=== PATIENT | female | born 1995 | race Caucasian/White ===

== ENCOUNTER 2024-07-18 00:49 | Outpatient (CLI) | payer BC, SELFPAY ==
[2024-07-18 15:08] LABS: Kit/Specimen SENT
[2024-07-18 15:14] LABS: Abs Immature Grans 0.06 10^3/uL (0.0-0.06); Absolute Eosinophil Count 0.03 10^3/uL (0.0-0.7); Absolute Lymphocyte Count 1.45 10^3/uL (1.2-3.4); Absolute Monocyte Count 0.47 10^3/uL (0.1-0.8); Absolute Neutrophil Count 9.39 10^3/uL (1.2-6.7); Basophils % 0.3 %; Eosinophils % 0.3 %; HCT 37.2 % (36.0-46.0); HGB 12.7 g/dL (11.2-15.7); Immature Grans % 0.5 %; Lymphocytes % 12.7 %; MCH 31.1 pg (27.0-33.0); MCHC 34.1 % (32.0-36.0); MCV 91 fL (80-95); MPV 9.7 fL (8.0-11.0); Monocytes % 4.1 %; Neutrophils % 82.1 %; Platelet Count 205 10^3/uL (130-400); RBC 4.09 10^6/uL (3.93-5.22); RDW 12.3 % (11.7-14.6); WBC 11.44 10^3/uL (4.4-10.8)
[2024-07-18 15:15] LABS: Absolute Basophil Count 0.03 10^3/uL (0.0-0.2)
[2024-07-21 08:30] LABS: HIV-1/2 Ag & Ab Screen Negative (Negative)
[2024-07-21 08:46] LABS: Hepatitis C Ab w Rflx HCV PCR Negative (Negative)
[2024-07-21 09:26] LABS: Hepatitis B Surface Ag Negative (Negative)
[2024-07-21 10:03] LABS: Rubella IgG Ab (UVM) Positive (See Note); Varicella IgG Antibody Negative (See Note)
[2024-07-21 17:03] LABS: Syphilis IgG w/Reflex Nonreactive (Nonreactive)
== END 2024-07-18 00:50 | disposition home or self-care (01) ==
LOC: LBO 00:49
PROVIDERS: Visit Provider Advanced Practice Midwife
DX: Z34.91 Encounter for supervision of normal pregnancy, unspecified, first trimester (principal)
CPT/HCPCS: 36415; 86787; 86803; 86850; 86900; 86901; 87340; 87389; 85025; 86762; 86780

== ENCOUNTER 2024-07-18 14:11 | Outpatient (REF) | payer BC, SELFPAY ==
[2024-07-21 12:09] LABS: Chlamydia Result Negative (Negative); GC Result Negative (Negative)
== END 2024-07-18 14:12 | disposition home or self-care (01) ==
LOC: LBN 14:11
PROVIDERS: Visit Provider Advanced Practice Midwife
DX: Z34.91 Encounter for supervision of normal pregnancy, unspecified, first trimester (principal)
CPT/HCPCS: 87491; 87591; 87086

== ENCOUNTER 2024-11-07 00:37 | Outpatient (CLI) | payer BC, SELFPAY ==
[2024-11-07 12:40] LABS: HCT 34.8 % (36.0-46.0); HGB 12.1 g/dL (11.2-15.7); MCH 31.5 pg (27.0-33.0); MCHC 34.8 % (32.0-36.0); MCV 91 fL (80-95); MPV 9.5 fL (8.0-11.0); Platelet Count 173 10^3/uL (130-400); RBC 3.84 10^6/uL (3.93-5.22); RDW 12.2 % (11.7-14.6); RDW-SD 40.4 fL; WBC 10.00 10^3/uL (4.4-10.8)
[2024-11-07 13:00] LABS: Glucose,1 Hr (Glucola) 98 mg/dL (80-140)
== END 2024-11-07 00:38 | disposition home or self-care (01) ==
LOC: LBO 00:37
PROVIDERS: Visit Provider Advanced Practice Midwife
DX: Z34.92 Encounter for supervision of normal pregnancy, unspecified, second trimester (principal)
CPT/HCPCS: 36415; 82950; 85027

== ENCOUNTER 2024-12-30 16:50 | Outpatient (CLI) | payer BC, SELFPAY ==
[2024-12-30 16:53] VITALS: BP 122/76; PULSE 92; TEMP 36.7
--- NOTE | 2024-12-30 18:08 | W.OBNST ---
Date of service: 12/30/24 Time of Service: 18:08 NST Evaluation Reason for NST Reasons for Nonstress Test: OTHER, SEE COMMENT Reason for NST Other: unable to determine baseline in office Gestational Age Gestational Age in Weeks and Days: 35 Weeks and 5Days Test and Monitor Explained Test/Monitor Explained: Test Explained, Monitor Explained and Patient Verbalized Understanding Vital Signs Blood Pressure: 122/76 Pulse: 92 Temperature: 98.1 F NST Information Date on Monitor: 12/30/24 Time on Monitor: 16:45 Date off Monitor: 12/30/24 Time off Monitor: 17:20 Total Time on Monitor: 35 NST Interventions: PO Hydration Contraction Frequency: 0 NST Evaluation Patient States Movement: Present FHR Baseline: 140 Variability: Moderate 6-25 bpm Accelerations: 15x15 Decelerations: None NST Results: Reactive Note Ultrasound Done: N/A. NST Note NST Reviewed and Verified by: Alyse Mahajan
[2024-12-30 18:09] VITALS: BP 122/76; PULSE 92; TEMP 36.7
== END 2024-12-30 17:24 ==
LOC: BCD 16:51 → OBS 16:52
PROVIDERS: Visit Provider Advanced Practice Midwife
DX: Z3A.35 35 weeks gestation of pregnancy (principal); O36.8331 Maternal care for abnormalities of the fetal heart rate or rhythm, third trimester, fetus 1
CPT/HCPCS: 59025; 87081

== ENCOUNTER 2024-12-30 17:33 | Outpatient (REF) | payer BC, SELFPAY | END 2024-12-30 17:34 | disposition home or self-care (01) | LOC: LBN 17:33 | PROVIDERS: Visit Provider Advanced Practice Midwife | DX: Z34.93 Encounter for supervision of normal pregnancy, unspecified, third trimester (principal) | CPT/HCPCS: 87081 ==

== ENCOUNTER 2025-01-30 09:58 | Inpatient (IN) | payer BC, SELFPAY ==
[2025-01-30] VITALS (64 sets, daily range): BP systolic 90–137; BP diastolic 56–75; PULSE 78–111; RESP 16–20; TEMP 36.8–37.2; O2SAT 88–100; BMI 30.5
[2025-01-30 10:23] LABS: Abs Immature Grans 0.07 10^3/uL (0.0-0.06); HCT 35.5 % (36.0-46.0); HGB 12.0 g/dL (11.2-15.7); Immature Grans % 0.6 %; MCH 29.9 pg (27.0-33.0); MCHC 33.8 % (32.0-36.0); MCV 88 fL (80-95); MPV 10.4 fL (8.0-11.0); Platelet Count 205 10^3/uL (130-400); RBC 4.02 10^6/uL (3.93-5.22); RDW 12.2 % (11.7-14.6); RDW-SD 39.6 fL; WBC 11.84 10^3/uL (4.4-10.8)
--- NOTE | 2025-01-30 10:28 | PDOC.NST_ITS ---
Date of service: 01/30/25 Time of Service: 10:28 NST Evaluation Reason for NST Reasons for Nonstress Test: OTHER, SEE COMMENT Reason for NST Other: rule out labor Gestational Age Gestational Age in Weeks and Days: 40 Weeks and 1Days Test and Monitor Explained Test/Monitor Explained: Test Explained and Patient Verbalized Understanding Vital Signs Blood Pressure: 125/75 Pulse: 90 Temperature: 98.2 F Weight: 207 lb Urine Results Urine Protein: Negative Urine Ketones: Negative Urine Glucose: Negative Urine Blood: Negative NST Information Date on Monitor: 01/30/25 Time on Monitor: 09:08 Date off Monitor: 01/30/25 Time off Monitor: 09:37 Total Time on Monitor: 29 NST Interventions: PO Hydration NST Evaluation Patient States Movement: Present FHR Baseline: 145 Variability: Moderate 6-25 bpm Accelerations: 15x15 Decelerations: None NST Results: Reactive Note Ultrasound Done: N/A. NST Note Note: Ángel reports regular contractions every 3-5 minutes at home. Reactive NST and uterine irritability and irregular contractions noted. Cervix 2 cms/95%0 s tation. Admitted in early labor. NST Reviewed and Verified by: Emmy Huitron
--- NOTE | 2025-01-30 10:30 | HPE_ITS ---
Date of service: 01/30/25 Time of Service: 10:30 Assessment and Plan Assessment and plan (1) Spontaneous onset of labor: Status: Acute Assessment and plan: Admitted to Center. Comfort measures and ambulation recommended. Will reassess for labor progress in 2-3 hours. Anticipate . OB-HPI Labor/Delivery History of Present Illness Reason for Visit: NST Chief Complaint: Uterine Contractions. MANDA Calculator Estimated Delivery Date Method Current WG Current Estimate 01/29/25 LMP (Certain) 40w 1d Other Estimates 02/01/25 Ultrasound #1 39w 5d Comments: Ángel called at 0700 and reported regular contractions every 3-5 minutes at home. She presented at 0900 and had NST and rule out labor exam. History of Present Expected Delivery Route/Plan - CNM FOB - Myron Hernandez (first baby) BG-Lauren Varicella non-immune, offer vaccine Planning for waterbirth, nitrous, relaxed vibe, prefers not to be offered e pidural but open to one (finds positive motivation most helpful). team: FOB and 2 sisters GBS negative Specific Issues/Plan 1. Pap due , no hx abnormal paps 2. CfDNA low risk female, Will check insurance coverage for cystic fibrosis and SMA, declines AFP 3. Family hx: Stargardt syndrome, genetic eye disorder. Declines genetic counseling. 4. 5-Ps neg 5. Chronic low back pain after a fall. PT visits at [facility] - SI joint dysfunction 6. GERD with yawning and heartburn- omeprazole prescribe prior to . Assessment: History Reviewed & Current Informed Consent Informed Consent: Risk,Benefits,Alternatives Discussed (Staying at the Center for durther observation or returning home to await active labor. ) PFSH All Active Problems (Updated 01/30/25 @ 10:34 by Emmy Huitron CNM) Spontaneous onset of labor (Acute) Low back pain (Acute) After a fall in 2020. PT in the past. Susceptible to varicella (non-immune), currently (Acute) (Acute) Medical History (Updated 01/30/25 @ 10:34 by Emmy Huitron CNM) Asthma Family History (Updated 07/18/24 @ 13:42 by Emmy Huitron CNM) Father Hypertension Maternal Grandmother Breast cancer Paternal Aunt Cancer uterine cancer Maternal Uncle Congenital eye anomalies Stargardt syndrome Maternal Cousin Congenital eye anomalies Stargardt syndrome. autosomal recessive. Her son also has it. Social History (Updated 05/23/24 @ 12:14 by Barb Kamara CNM) Smoking/Tobacco Use Status: Never Second Hand Exposure: No Smoking risk assessment performed?: Yes Alcohol Intake: current Drug use: Never Substance use type: does not use Household members: spouse current occupation: teacher Pets and animals: Yes (2 dogs, 1 cat and farm animals) Pets and animals: cat(s) Sexually active: Yes Do you think of yourself as: straight/heterosexual Current gender identity: female What is your relationship status?: Panel score (0-1 are the most socially isolated patients): 1 What type of physical activity do you participate in: regular exercise, weight lifting, running and yoga Duration: 45-60 minutes/day Frequency: 3-4 times per week Special miles needs: No Agree to transfusion: Yes Seatbelt use: always Helmet use: Yes Do you feel safe at home: Yes Female Reproductive History Menstrual Age of Menarche: 16 Duration of menses: 3-5 days control method: none History History 1 Para 0 Hx # Term Pregnancies 0 Multiple births 0 Hx # Pregnancies 0 Ectopic pregnancies 0 AB induced 0 Hx Number of Living Children 0 AB spontaneous 0 Meds Allergies and Home Medications Allergies Allergy/AdvReac Type Severity Reaction Status Date / Time No Known Allergies Allergy Verified 01/27/25 15:23 Home Medications Medication Instructions Recorded Confirmed Type vits no.126-ferrous fum tab PO DAILY 05/23/24 01/27/25 History 28 mg iron-folic acid 800 mcg tablet (Classic ) vitamin D3 125 mcg (5,000 1 cap PO DAILY 08/15/2407/18 History unit)-vitamin K2 90 mcg capsule breast pump #1 ea 11/19/24 01/27/25 Rx Exam Physical Exam Vital signs: Temp Pulse Resp BP 98.2 F 90 18 125/75 01/30/25 09:10 01/30/25 09:10 01/30/25 09:10 01/30/25 09:10 Vital Signs Reviewed: Yes Constitutional Constitutional: no acute distress Detailed Labor and Delivery Exam Dilation: 2 Effacement (%): 95 station: 0 Cervix position: mid Consistency: soft Virgen Score: Cervical Points Exam 0 1 2 3 Dilation Closed 1-2cm 3-4 cm 5-6cm Effacement 0-30% 40-50% 60-70% 80% Consistency Firm Medium Soft Station -3 -2 -1,0 +1,+2 Position Posterior Mid Anterior Amniotic Membrane Status: Intact Monitor Mode: External Contraction Frequency(min): evry 3-6 Contraction Duration(sec): 40-60 Contraction Intensity: Moderate Fetus A Heart Rate Baseline: 140 Monitor Accelerations: 15 X 15 Monitor Decelerations: None Variability: Moderate (6-25 BPM) Presentation: Cephalic Categories: Category I Est. Weight: 8 lb HEENT Exam HEENT Exam: Normal Neck Exam Neck Exam: Normal Respiratory Exam Respiratory Exam: Normal Cardiovascular Exam Cardiovascular Exam: Normal Abdominal Exam Abdominal Exam: Normal Exam Exam: Normal Extremities Exam Extremities Exam: Normal Skin Exam Skin Exam: Normal Psychiatric Exam Psychiatric Exam: Normal Results Abnormal Lab Findings: Abnormal Labs 01/30/25 10:07 WBC 11.84 H Hct 35.5 L Absolute Neutrophils 10.40 H Absolute Lymphocytes 0.92 L Risk Assessment Risk for Shoulder Dystocia Historical/Initial OB: NEGATIVE FOR: Pelvic Abnormality, Pre- BMI>30, Previous Shoulder Dystocia or Previous Macrosomia 36 Weeks: NEGATIVE FOR: Current Gestational DM, EFW>4500gms or Maternal Weight Gain>40lbs 40 Weeks: POSTIVE FOR: Maternal Weight Gain >40lb; NEGATIVE FOR: EFW> 4500 gms or Post Dates Increased Risk?: Yes Delivery Plan @ 40 wks: planned Risk for Pre-Eclampsia Yes, if one or more: NEGATIVE FOR: Hx Pre-E/Gest HTN, Chronic HTN, Multiple Gestation, Pre-gestational DM, Renal Disease, Systemic Lupus or APA Syndrome Yes, if 2 or more: POSITIVE FOR: Nulliparity; NEGATIVE FOR: Age>= 35 yrs, >10yr btwn pregnancies, BMI>30, ethinicty, Mother/Sister w/ Pre-E or Previous IUGR Risk for Post- Hemorrhage Initial: NEGATIVE FOR: Multiple Gestation, Previous PPH, Known Clotting Deficiency, Grand Multiparity or Anticoagulation 36 Weeks: NEGATIVE FOR: Anemia, hgb<10, Low platelets(thrombocytopenia), Gestational HTN or Pre-E, Polyhydraminios or EFW>4500gms 40 Weeks: NEGATIVE FOR: Anemia, hgb<10, Low platelets (thrombocytopenia), Gestation HTN or Pre-E, Polyhydraminios or EFW>4500gms At Risk?: No Risks Reviewed Risks Reviewed Upon Admission: Yes
--- NOTE | 2025-01-30 12:44 | W.PM.OBNL1 ---
Date of service: 01/30/25 Time of Service: 12:44 Informed Consent Informed Consent: Risk,Benefits,Alternatives Discussed (Staying at the Center for durther observation or returning home to await active labor. ) Pelvic Exam Dilation: 4 Effacement (%): 95 station: 0 Cervix Position: posterior Consistency: soft Vaginal Exam Presentation: Cephalic Contractions Monitor Mode: None Contraction Frequency(min): every 3 min Contraction Duration(sec): 60 Intensity: Moderate/Strong Fetus A Monitor: Doppler Heart Rate Baseline: 140 Presentation: Cephalic Variability: Moderate (6-25 BPM) Categories: Category I FHR Rhythm: Regular Accelerations: 15 X 15 Decelerations: None Amniotic Membrane Status: Intact Assessment and Plan Assessment and plan (1) Spontaneous onset of labor: Status: Acute Assessment and plan: comfort measures and anticipate Objective Abnormal lab results 01/30/25 Range/Units 10:07 WBC 11.84 H (4.4-10.8) 10^3/uL Hct 35.5 L (36.0-46.0) % Absolute Neutrophils 10.40 H (1.2-6.7) 10^3/uL Absolute Lymphocytes 0.92 L (1.2-3.4) 10^3/uL Temp Pulse Resp BP 98.2 F 90 18 125/75 01/30/25 09:10 01/30/25 09:10 01/30/25 09:10 01/30/25 09:10 Laboratory Results WBC 11.84 10^3/uL (4.4-10.8) H 01/30/25 10:07 RBC 4.02 10^6/uL (3.93-5.22) 01/30/25 10:07 Hgb 12.0 g/dL (11.2-15.7) 01/30/25 10:07 Hct 35.5 % (36.0-46.0) L 01/30/25 10:07 MCV 88 fL (80-95) 01/30/25 10:07 MCH 29.9 pg (27.0-33.0) 01/30/25 10:07 MCHC 33.8 % (32.0-36.0) 01/30/25 10:07 RDW 12.2 % (11.7-14.6) 01/30/25 10:07 Plt Count 205 10^3/uL (130-400) 01/30/25 10:07 MPV 10.4 fL (8.0-11.0) 01/30/25 10:07 Immature Gran % 0.6 % 01/30/25 10:07 Neutrophils % 87.8 % 01/30/25 10:07 Lymphocytes % 7.8 % 01/30/25 10:07 Monocytes % 3.5 % 01/30/25 10:07 Eosinophils % 0.0 % 01/30/25 10:07 Basophils % 0.3 % 01/30/25 10:07 Nucleated RBC % 0.0 % (0.0-0.3) 01/30/25 10:07 Absolute Neutrophils 10.40 10^3/uL (1.2-6.7) H 01/30/25 10:07 Absolute Lymphocytes 0.92 10^3/uL (1.2-3.4) L 01/30/25 10:07 Absolute Monocytes 0.41 10^3/uL (0.1-0.8) 01/30/25 10:07 Absolute Eosinophils 0.00 10^3/uL (0.0-0.7) 01/30/25 10:07 Absolute Basophils 0.04 10^3/uL (0.0-0.2) 01/30/25 10:07 ABO/Rh O Positive 01/30/25 10:07 Antibody Screen NEGATIVE 01/30/25 10:07 Subjective Patient Reports: New Complaints Interval history since last seen: Stronger contractions reported. Ángel is coping well with them and receiving excellent labor support from her . Results Hemoglobin/Hematocrit: Hgb 12.0 g/dL (11.2-15.7) 01/30/25 10:07 Hct 35.5 % (36.0-46.0) L 01/30/25 10:07 Abnormal Lab Findings: Abnormal Labs 01/30/25 10:07 WBC 11.84 H Hct 35.5 L Absolute Neutrophils 10.40 H Absolute Lymphocytes 0.92 L
--- NOTE | 2025-01-30 14:41 | W.PM.OBNL1 ---
Date of service: 01/30/25 Time of Service: 14:41 Informed Consent Informed Consent: Risk,Benefits,Alternatives Discussed (Staying at the Center for durther observation or returning home to await active labor. ) Pelvic Exam Dilation: 5 Effacement (%): 95 station: 0 Cervix Position: posterior Consistency: soft Vaginal Exam Presentation: Cephalic Comments: mucusy discharge noted which is blood tingerd Contractions Monitor Mode: None Contraction Frequency(min): every 2-3 Contraction Duration(sec): 60 Intensity: Moderate/Strong Fetus A Monitor: Doppler Heart Rate Baseline: 140 Presentation: Cephalic Variability: Moderate (6-25 BPM) Categories: Category I FHR Rhythm: Regular Accelerations: 15 X 15 Decelerations: None Amniotic Membrane Status: Intact Assessment and Plan Assessment and plan (1) Spontaneous onset of labor: Status: Acute Assessment and plan: Will continue to assess labor progress. Comfort measures. Anticipate . Objective Abnormal lab results 01/30/25 Range/Units 10:07 WBC 11.84 H (4.4-10.8) 10^3/uL Hct 35.5 L (36.0-46.0) % Absolute Neutrophils 10.40 H (1.2-6.7) 10^3/uL Absolute Lymphocytes 0.92 L (1.2-3.4) 10^3/uL Temp Pulse Resp BP 98.2 F 78 18 137/61 01/30/25 13:11 01/30/25 13:11 01/30/25 09:10 01/30/25 13:11 Laboratory Results WBC 11.84 10^3/uL (4.4-10.8) H 01/30/25 10:07 RBC 4.02 10^6/uL (3.93-5.22) 01/30/25 10:07 Hgb 12.0 g/dL (11.2-15.7) 01/30/25 10:07 Hct 35.5 % (36.0-46.0) L 01/30/25 10:07 MCV 88 fL (80-95) 01/30/25 10:07 MCH 29.9 pg (27.0-33.0) 01/30/25 10:07 MCHC 33.8 % (32.0-36.0) 01/30/25 10:07 RDW 12.2 % (11.7-14.6) 01/30/25 10:07 Plt Count 205 10^3/uL (130-400) 01/30/25 10:07 MPV 10.4 fL (8.0-11.0) 01/30/25 10:07 Immature Gran % 0.6 % 01/30/25 10:07 Neutrophils % 87.8 % 01/30/25 10:07 Lymphocytes % 7.8 % 01/30/25 10:07 Monocytes % 3.5 % 01/30/25 10:07 Eosinophils % 0.0 % 01/30/25 10:07 Basophils % 0.3 % 01/30/25 10:07 Nucleated RBC % 0.0 % (0.0-0.3) 01/30/25 10:07 Absolute Neutrophils 10.40 10^3/uL (1.2-6.7) H 01/30/25 10:07 Absolute Lymphocytes 0.92 10^3/uL (1.2-3.4) L 01/30/25 10:07 Absolute Monocytes 0.41 10^3/uL (0.1-0.8) 01/30/25 10:07 Absolute Eosinophils 0.00 10^3/uL (0.0-0.7) 01/30/25 10:07 Absolute Basophils 0.04 10^3/uL (0.0-0.2) 01/30/25 10:07 ABO/Rh O Positive 01/30/25 10:07 Antibody Screen NEGATIVE 01/30/25 10:07 Subjective Patient Reports: New Complaints Interval history since last seen: Contractions are stronger and Ángel is using nitrous oxide with good effect. Her sisters are also here for support. Ángel is coping very well. Results Hemoglobin/Hematocrit: Hgb 12.0 g/dL (11.2-15.7) 01/30/25 10:07 Hct 35.5 % (36.0-46.0) L 01/30/25 10:07 Abnormal Lab Findings: Abnormal Labs 01/30/25 10:07 WBC 11.84 H Hct 35.5 L Absolute Neutrophils 10.40 H Absolute Lymphocytes 0.92 L
--- NOTE | 2025-01-30 16:04 | W.PM.OBNL1 ---
Date of service: 01/30/25 Time of Service: 16:04 Informed Consent Informed Consent: Risk,Benefits,Alternatives Discussed (Staying at the Center for durther observation or returning home to await active labor. ) Pelvic Exam Comments: cervical exam deferred until after epidural Contractions Contraction Frequency(min): every 3-4 Contraction Duration(sec): 60 Intensity: Strong Fetus A Monitor: External (US) Heart Rate Baseline: 145 Variability: Moderate (6-25 BPM) Categories: Category I Accelerations: 15 X 15 Decelerations: None Amniotic Membrane Status: Intact Assessment and Plan Assessment and plan (1) Spontaneous onset of labor: Status: Acute Assessment and plan: Rest was encouraged. Anticipate . Care will be assumed by Gena Mahajan CNM at 1700. Objective Abnormal lab results 01/30/25 Range/Units 10:07 WBC 11.84 H (4.4-10.8) 10^3/uL Hct 35.5 L (36.0-46.0) % Absolute Neutrophils 10.40 H (1.2-6.7) 10^3/uL Absolute Lymphocytes 0.92 L (1.2-3.4) 10^3/uL Temp Pulse Resp BP Pulse Ox 98.2 F 95 H 18 118/58 L 98 01/30/25 13:11 01/30/25 16:03 01/30/25 09:10 01/30/25 16:02 01/30/25 16:03 Laboratory Results WBC 11.84 10^3/uL (4.4-10.8) H 01/30/25 10:07 RBC 4.02 10^6/uL (3.93-5.22) 01/30/25 10:07 Hgb 12.0 g/dL (11.2-15.7) 01/30/25 10:07 Hct 35.5 % (36.0-46.0) L 01/30/25 10:07 MCV 88 fL (80-95) 01/30/25 10:07 MCH 29.9 pg (27.0-33.0) 01/30/25 10:07 MCHC 33.8 % (32.0-36.0) 01/30/25 10:07 RDW 12.2 % (11.7-14.6) 01/30/25 10:07 Plt Count 205 10^3/uL (130-400) 01/30/25 10:07 MPV 10.4 fL (8.0-11.0) 01/30/25 10:07 Immature Gran % 0.6 % 01/30/25 10:07 Neutrophils % 87.8 % 01/30/25 10:07 Lymphocytes % 7.8 % 01/30/25 10:07 Monocytes % 3.5 % 01/30/25 10:07 Eosinophils % 0.0 % 01/30/25 10:07 Basophils % 0.3 % 01/30/25 10:07 Nucleated RBC % 0.0 % (0.0-0.3) 01/30/25 10:07 Absolute Neutrophils 10.40 10^3/uL (1.2-6.7) H 01/30/25 10:07 Absolute Lymphocytes 0.92 10^3/uL (1.2-3.4) L 01/30/25 10:07 Absolute Monocytes 0.41 10^3/uL (0.1-0.8) 01/30/25 10:07 Absolute Eosinophils 0.00 10^3/uL (0.0-0.7) 01/30/25 10:07 Absolute Basophils 0.04 10^3/uL (0.0-0.2) 01/30/25 10:07 ABO/Rh O Positive 01/30/25 10:07 Antibody Screen NEGATIVE 01/30/25 10:07 Vital Signs Reviewed: Yes Subjective Patient Reports: New Complaints Interval history since last seen: Ángel's contractions were very uncomfortable. Dera Pleitez CRNA came in to speak with Ángel about an epidural. Ángel decided that she was ready for an epidural as she was very tired. Using nitrous oxide with fair effect and she requested to use the tub before epidural which was helpful. Results Hemoglobin/Hematocrit: Hgb 12.0 g/dL (11.2-15.7) 01/30/25 10:07 Hct 35.5 % (36.0-46.0) L 01/30/25 10:07 Abnormal Lab Findings: Abnormal Labs 01/30/25 10:07 WBC 11.84 H Hct 35.5 L Absolute Neutrophils 10.40 H Absolute Lymphocytes 0.92 L
[2025-01-30] MEDS: FentaNYL/ROPIvacaine 2 mcg/ml and 0.1% 200 ML CADD Cassette EP (16:10)
[2025-01-30] MEDS: Lactated Ringers 1,000 ML 125 ML IV ×2 (16:19→18:46)
--- NOTE | 2025-01-30 16:21 | ANES.PREOP_ITS ---
General Info Date of Service Date Performed: 01/30/25 Height: 5 ft 9 in Weight: 93.894 kg Body Mass Index (BMI): 30.5 Meds Allergies and Home Medications Allergies Allergy/AdvReac Type Severity Reaction Status Date / Time No Known Allergies Allergy Verified 01/27/25 15:23 Home Medication Medication Instructions Recorded vits no.126-ferrous fum tab PO DAILY 05/23/24 28 mg iron-folic acid 800 mcg tablet (Classic ) vitamin D3 125 mcg (5,000 1 cap PO DAILY 08/15/24 unit)-vitamin K2 90 mcg capsule breast pump #1 ea 11/19/24 Current Visit Medications: Current Medications Generic Name Dose Route Start Last Admin Trade Name Freq PRN Reason Stop Dose Admin Fentanyl/Ropivacaine 200 ml 01/30/25 16:00 Fentanyl/Ropivacaine 2 Mcg/Ml And 0.1% 200 Ml Cadd Cassette EP DIRECTED RISA Ringer's Solution 500 mls @ 1,000 mls/hr 01/30/25 16:14 IV 01/30/25 16:43 BOLUS ONE Ringer's Solution 1,000 mls @ 125 mls/hr 01/30/25 16:30 IV INFUSION RISA IV Miscellaneous Supplies 1 each 01/30/25 10:00 Iv Access IV DIRECTED RISA Sodium Chloride 0 ml 01/30/25 09:58 Normal Saline Flush 10 Ml Syr IVP PRN PRN Sodium Chloride 0 ml 01/30/25 20:00 Normal Saline Flush 10 Ml Syr IVP BID RISA Sodium Chloride 0 ml 01/30/25 09:58 Normal Saline 10 Ml Vial IJ DIRECTED PRN PFSH Active Problems Active Problems: Problem Status Onset Code Spontaneous onset of labor Acute Low back pain Acute M54.50 Susceptible to varicella (non-immune), currently Acute O09.899, Z28.39 Acute Z34.90 Medical History Medical History (Updated 01/30/25 @ 10:34 by Emmy Huitron CNM) Asthma Tobacco Smoking/Tobacco Use Status: Never Passive smoking exposure: No Second hand exposure: No Alcohol Alcohol Intake: current Substance Use Substance use: Never Substance use type: does not use Prental History History 2 1 Para 0 Hx # Term Pregnancies 0 Multiple births 0 Hx # Pregnancies 0 Ectopic pregnancies 0 AB induced 0 Hx Number of Living Children 0 AB spontaneous 0 Vital Signs and Lab Results Vital Signs Most Recent Vital Signs in EMR: Most Recent Vital Signs Temp Pulse Resp BP Pulse Ox 36.8 C 90 18 115/66 96 01/30/25 13:11 01/30/25 16:18 01/30/25 09:10 01/30/25 16:17 01/30/25 16:18 Lab Results 01/30/25 10:07 Blood Type / Crossmatch: 2 Antibody Screen NEGATIVE Today Complete Blood Count: 2 WBC, (4.4-10.8) 11.84 10^3/uL H Today, 10:07 RBC, (3.93-5.22) 4.02 10^6/uL Today, 10:07 Hgb, (11.2-15.7) 12.0 g/dL Today, 10:07 Hct, (36.0-46.0) 35.5 % L Today, 10:07 Plt Count, (130-400) 205 10^3/uL Today, 10:07 Anesthesia Assessment and Plan Anesthesia History Personal History: No History of Anesthesia Complications Family History: No Family History of Anesthesia Complications Exercise Tolerance Exercise Tolerance: Metabolic Equivalents>4 Pertinent Negatives Pertinent Negatives: No Major Cardiovascular Symptoms or Complaints and No Major Pulmonary Symptoms or Complaints Cardiac & Pulmonary Exam Cardiac Exam: Normal S1/S2 Heart Sounds Pulmonary Exam: Clear Bilateral Breath Sounds Implantable Cardiac Device Does patient have a Pacemaker or an ICD?: No Airway Exam Known Difficult Airway: No Mallampati Class: 2 Mouth Opening: Normal (> 3cm) Thyromental Distance: Greater than 3 cm Facial Hair: Full Pierson Neck Range of Motion: Full ROM Neck Circumference: Normal Teeth Condition: Normal Dentition ASA Classification ASA Score: ASA 2 Emergency Case?: No NPO Status NPO Status: NPO Clears >2 hours, Solids >8 hours Status Status: Confirmed Anesthesia Plan Resuscitation Status: Full Code Anesthesia Technique: Epidural Anesthesia Airway Planned: Natural Airway Monitors Used: Standard Monitors
--- NOTE | 2025-01-30 16:24 | W.ANESNEU ---
Epidural/Spinal Catheter Date Performed: 01/30/25 Procedure Start: 15:37 Procedure Stop: 16:15 Requesting Provider: Emmy Huitron Procedure Location: Obstetrics Reason Performed: Labor Epidural Standard Monitors Applied: Blood Pressure, SpO2 and See EMR for corresponding vital signs Patient Position: Sitting Sedation Given (Indicate Dose Given): No Sedation given Patient Mental Status: Awake Sterility: Hand Hygiene, Surgical Cap, Surgical Mask and Sterile Gloves Procedure Location: L3-L4 Interspace Epidural Needle: Tuohy 18 Gauge Needle Length: 4 Inch Needle Approach: Midline Epidural Procedure: Skin Prepped, Sterile Drape Placed, 1% Lidocaine to skin and subcutaneous tissue with 25G needle, Tuohy Needle placed, LINH to Saline Used, Epidural Catheter Placed, Negative Heme, Negative CSF Flow and Tuohy Needle Removed Catheter Placed?: Catheter Placed Test Dose (Indicate Dose Given): 3ml 1.5% Lidocaine with 1:200K Epinephrine Given and Negative Test Dose Loss of Resistance Depth (cm): 7 Catheter depth at skin (cm): 13 Dressing: Sorbaview Dressing Placed, Mastisol Used and Dressing reinforced with Tape Epidural Provider Bolus (Indicate Dose Given): Total bolus dose given in 3-5 ml divided doses and Total Ropivacaine 0.1% with Fentanyl 2mcg/ml Given from pump. (ml) Dose:: 8ml Additives (Indicate Dose Given ): None Infusion Medication: Medication Infusion Began Medication Infusion: Ropivacaine 0.1% with Fentanyl 2mcg/ml Maintenance Infusion Rate (ml/hour): 12 PCEA Bolus Dose (ml): 5 Block Level: T10 Paresthesia: None Ultrasound: Not Used Number of Attempts (See previous attempts in note section): 1 Procedure Tolerated: No Complications Procedure Outcome: Successful Procedure Comment:: Patient educated on PCEA button, family supoort provided to patient. Performed By: Drea Pleitez
--- NOTE | 2025-01-30 18:37 | W.PM.OBNL1 ---
Date of service: 01/30/25 Time of Service: 18:37 Pelvic Exam Dilation: 7 Effacement (%): 100 station: 0 Contractions Monitor Mode: External Contraction Frequency(min): q2-3 Intensity: Moderate/Strong Fetus A Monitor: External (US) Heart Rate Baseline: 135 Variability: Moderate (6-25 BPM) Categories: Category I Accelerations: Present Decelerations: Early Amniotic Membrane Status: Ruptured Assessment and Plan Assessment and plan (1) Spontaneous onset of labor: Status: Acute Assessment and plan: A: Effective epidural anesthesia, progressed to 7/100%, vtx @ 0 station Category 1 tracing, afebrile, normotensive P: positioning to facilitate rotation and descent recheck in 2 hrs, consider pitocin augmentation if indicated Dr. Chao updated on pt status Objective Vital Signs Reviewed: Yes Subjective Interval history since last seen: Pt states she is very pleased with her epidural, in good spirits and visiting with her partner and 2 friends.
--- NOTE | 2025-01-30 21:09 | W.PM.OBNL1 ---
Date of service: 01/30/25 Time of Service: 21:09 Informed Consent Informed Consent: Augmentation of Labor and Risk,Benefits,Alternatives Discussed Pelvic Exam Dilation: 8 Effacement (%): 100 station: +1 Contractions Monitor Mode: External Contraction Frequency(min): q3-4 Intensity: Moderate/Strong Fetus A Monitor: External (US) Heart Rate Baseline: 140 Variability: Moderate (6-25 BPM) Categories: Category I Accelerations: Present Decelerations: Early Recurrence: Intermittent Amniotic Membrane Status: Ruptured Assessment and Plan Assessment and plan (1) Spontaneous onset of labor: Status: Acute (2) Slow progress in first stage of labor: Status: Acute Assessment and plan: A: 2.5 hrs since last exam, progressed to 7-8 cm and slight descent to +1 Cntrx have slowed to q3-4 min, pt consents to pitocin augmentation after r&b discussion Category 1 tracing with occasional earlies, pt changing positions, epidural working well P: Begin low dose pitocin augmentation, monitor for progress Objective Vital Signs Reviewed: Yes Subjective Interval history since last seen: Has been able to nap for a short period, epidural remains effective, consents to pitocin augmentation
[2025-01-30] MEDS: Oxytocin/Normal Saline 30 UNIT/500 ML BAG 2 UNITS IV (21:30)
--- NOTE | 2025-01-30 23:11 | W.PM.OBNL1 ---
Date of service: 01/30/25 Time of Service: 23:00 Informed Consent Informed Consent: Augmentation of Labor and Risk,Benefits,Alternatives Discussed Pelvic Exam Dilation: 10 station: +3 Position: SAHIL Contractions Monitor Mode: External Contraction Frequency(min): q2-4 Intensity: Strong Fetus A Monitor: External (US) Heart Rate Baseline: 160 Variability: Minimal (1-5 BPM) Categories: Category II Accelerations: Present Decelerations: Early and Variable Recurrence: Recurrent Amniotic Membrane Status: Ruptured Assessment and Plan Assessment and plan (1) Slow progress in first stage of labor: Status: Acute Assessment and plan: A: Pitocin @ 4u/min, contraction pattern strengthened resulting in full dilation with descent 2nd stage huddle held, normal risk for SD and PPH Cat 2 tracing and vtx descending with maternal effort P: Coached pushingDr. Chao inhouse Anticipate Objective Vital Signs Reviewed: Yes Objective Narrative Objective Narrative: full dilation and vtx @ +3 Category 2 tracing: periodic variables, rising baseline to 160 Subjective Interval history since last seen: increased rectal pressure and urges to bear down reported by pt
[2025-01-31] VITALS (39 sets, daily range): BP systolic 106–123; BP diastolic 55–73; PULSE 88–129; RESP 17–18; TEMP 36.6–36.9; O2SAT 90–99
[2025-01-31] MEDS: Benzocaine 20% 60 ML CAN (00:40)
--- NOTE | 2025-01-31 01:05 | W.OBDELIVERY ---
Date of service: 01/31/25 Time of Service: 01:00 OB Labor/ Delivery Information Baby A Delivery Delivery Method: Spontaneaous Presentation: Cephalic Cephalic Position: Vertex Vertex Position: Left Occipital Anterior Breech Position: N/A Cord Description-Baby A: 3 Vessels and Other (left nuchal hand) Amniotic Fluid: Clear Quantitative Blood Loss: 700 ml Delivery Outcome: Liveborn Infant Transferred: Other (infant in warmer in mother's room for CPAP) Note: Pitocin augmentation begun after 2100 with category 1 tracing, at 4mu/min contractions strengthened and pt progressed to full dilation and descent to +3 with involuntary maternal bearing down by 2300. At 2nd stage huddle it was noted tracing was category 2, baseline tachycardic @ 160-170, periods of minimal variability, early and variable decels were periodic and there was occasional question of late decel intermittently. 2nd stage huddle identified normal risk for PPH and SD, Dr. Chao inhouse and preparations for delivery in place. Excellent maternal efforts brought the baby to just after second 2nd stage huddle completed, FHT 135 immediately prior to of a female over intact perineum, nuchal hand reduced and shoulders delivered with ease. appeared pink and flexed but not crying, drying and stimulation did not improve 's respiratory efforts, cord clamped @ 1 minute, cut by FOB, infant to warmer for further support and evaluation and Dr. Gregory pagekassi. Cord gas samples and cord blood collected by CNM, pitocin bolus begun, [place] placenta intact with 3VC, bladder emptied for approximately 300 ml urine by straight cath. Perineum inspected and found to be intact, bilateral superficial labial lacerations noted, not bleeding and well approximated, right labial lac edges stabilized with 2 stitches of 3.0 Vicryl using 20% benzocaine topical aerosol anesthetic. Apgars assigned 4, 6, 7 by nursing, Dr. Gregory supervising infant care in warmer, weight 3675 gms. Providers Nurse Music Historian: Alyse Mahajan Financial Systems Manager: Drea Pleitez Environmental Director: Nataliia Gregory Nurse: Nellie Garcia Nurse: Francy Naylor Labor/Delivery Information Group Beta Strep: Negative Rubella Status: Immune Blood Type: O+ Varicella Immunity: Nonimmune Stages of Labor Onset of Labor Date: 01/30/25 Onset of Labor Time: 02:30 Complete Dilatation Date: 01/30/25 Complete Dilatation Time: 23:00 Labor - Stage 1 Duration: 20 hours and 30 minutes ROM Baby A: 01/30/25 ROM Baby A: 14:23 Infant Delivery Date-Baby A: 01/31/25 Delivery Time-Baby A: 00:21 Labor Stage 2 Duration: 1 hours and 21 minutes Placenta Delivery Date-Baby A: 01/31/25 Placenta Delivery Time-Baby A: 00:30 Labor-Stage 3 Duration: 9 minutes Total Length of Labor-Baby A: 21 hours and 51 minutes Placenta Cultured: No Placenta Status: Delivered Baby A Infant Gender: Female Gestational Status: Term (39-41.6 wks) Gestational Age in Weeks/Days: 40 Weeks and 2 Days weight: 8 lb 1.632 oz Weight Comment: 3675 gms Score-1 Minute Interval(Baby A) Heart Rate-1 minute: 100 BPM or Greater Respiratory Effort- 1 minute: No Spontaneous Effort Muscle Tone-1 minute: Minimal Flexion/Extension Reflex Response-1 minute: Minimal Response Color-1 minute: Pallor or Cyanosis Score-5 Minute Interval(Baby A) Heart Rate- 5 minute: 100 BPM or Greater Respiratory Effort-5 minute: Slow Respiration/Weak Cry Muscle Tone-5 minute: Minimal Flexion/Extension Reflex Response-5 minute: Minimal Response Color-5 minute: Bluish Hands or Feet
[2025-01-31] MEDS: Acetaminophen 325 MG TAB 650 MG PO ×2 (01:24→18:06)
[2025-01-31] MEDS: Ibuprofen 600 MG TAB PO ×3 (01:24→19:50)
[2025-01-31] MEDS: Hamamelis Leaf/Glycerin 100 EACH BOX PR (01:24)
[2025-01-31] MEDS: Dibucaine 1% 28 GM TUBE TP (01:24)
--- NOTE | 2025-01-31 16:00 | W.ANESPOSTOP ---
Postoperative Evaluation Date, Time and Location Date Performed: 01/31/25 Time Performed: 15:30 Patient Location: Obstetrics Vital Signs Most Recent Imported Vital Signs: Most Recent Vital Signs Temp Pulse Resp BP Pulse Ox 36.6 C 101 H 17 123/64 97 01/31/25 15:44 01/31/25 15:44 01/31/25 04:30 01/31/25 15:44 01/31/25 15:44 Pain Score Most Recent Pain Score: Most Recent Pain Score Pain Level 3 01/31/25 13:08 Assessment Mental Status: Awake (Alert & Oriented to Patient Baseline) Airway and Respiratory Function: Patent airway with normal (patient baseline) respiratory exam Cardiovascular Function: Hemodynamically Stable Hydration Status: Adequately Hydrated Nausea & Vomiting: No Nausea or Vomiting Pain: Pain is tolerable per patient Peripheral Nerve Block: Patient did not receive a nerve block Postoperative Comments:: Patient was please with analgesic coverage from the labor epidural. Reported slightly more sensation on right than left, but would not describe it as painful. and patient resting with child.
[2025-01-31] MEDS: Docusate Sodium 100 MG CAP PO (18:06)
[2025-02-01 08:30] VITALS: BP 109/79; PULSE 82; TEMP 36.7
[2025-02-01 08:35] VITALS: TEMP 36.7
[2025-02-01] MEDS: Acetaminophen 325 MG TAB 650 MG PO (08:35)
--- NOTE | 2025-02-01 08:54 | W.PM.OBPNV1 ---
Date of service: 02/01/25 Time of Service: 08:54 Assessment and Plan Assessment and plan (1) Term delivered: Status: Acute Assessment and plan: A: PPD#1, nml recovery, satisfied with experience off to a good start, pt states good supports are in place at home P: Offer varicella vaccine prior to discharge Pt desires discharge today (24 hr pp) Written instructions reviewed and given to pt F/up at 2 & 6 wks PP with md do resident urgent care Subjective Subjective Patient comments: No complaints, Pain well controlled, Tolerating diet and Flatus present Patient's Mood: happy [place] baby status: Doing well, Nursing well, Rooming in and Strong Bonding Observed feeding status: Exclusively breast feeding Exam Physical Exam Vital signs: Temp Pulse Resp BP Pulse Ox 98.1 F 99 H 17 118/73 99 02/01/25 08:35 01/31/25 20:09 01/31/25 20:09 01/31/25 20:09 01/31/25 20:09 Vital Signs Reviewed: Yes Constitutional Constitutional: no acute distress, average body habitus and cooperative HEENT Exam HEENT Exam: Normal Neck Exam Neck Exam: Normal Breast Exam Bilateral: Breast Exam: Normal and Soft Nipple Exam: Normal and Uninjured Respiratory Exam Respiratory Exam: Normal Cardiovascular Exam Cardiovascular Exam: Normal Abdominal Exam Abdomen: Other (soft and nontender) Fundal Exam Fundus: Below Umbilicus and Firm Rectal Exam Rectal Exam: Normal Exam Perineum: Intact and Normal Extremities Exam Extremity Exam: Normal, Full ROM and Warm to Touch Back/Spine/Pelvis Exam Back Exam: Normal Skin Exam Skin Exam: Normal Neurological Exam Neurological Exam: Normal Psychiatric Exam Psychiatric Exam: Normal Results Hemoglobin/Hematocrit: Hgb 12.0 g/dL (11.2-15.7) 01/30/25 10:07 Hct 35.5 % (36.0-46.0) L 01/30/25 10:07 Abnormal Lab Findings: Abnormal Labs 01/30/25 10:07 WBC 11.84 H Hct 35.5 L Absolute Neutrophils 10.40 H Absolute Lymphocytes 0.92 L
--- NOTE | 2025-02-01 09:16 | DSE_ITS ---
Date of service: 02/01/25 Time of Service: 09:16 DS: Diagnosis Discharge Diagnosis (1) Term delivered: Status: Acute Discharge Plan Disposition Patient Disposition: Home Condition: Good Discharge Details Reason For Visit: Labor Admit Date/Time: 01/30/25 09:58 Admit Provider: Emmy Huitron Attending Provider: Emmy Huitron Primary Care Provider: Unknown,Unknown Hospital Course Hospital Course: Admitted for labor, under epidural anesthesia on HD2, nml recovery and desires discharge at 24 hr . Home Meds and New Rx's Prescriptions: No Action Classic 28 mg iron- 800 mcg tablet PO DAILY (DME) breast pump Device See Rx Instructions .ROUTE .MEDSUPPLY Qty: 1 0RF Rx Instructions: As directed vitamin D3-vitamin K2 125-90 mcg capsule 1 cap PO DAILY Discharge Instructions Instructions: Sex After Having a Baby, Normal Bleeding After Having a Baby Additional Instructions: Please keep 2 and 6 wk appointments with day camp unit leader, call for any and all concerns. Stand Alone Forms: BC Instructions, BC Post Vaginal Deliver, Portal Information Activity:: Activity as Tolerated Equipment/Supplies:: No Equipment Needed Diet:: As Tolerated DS: Summary Time Spent with Patient providing and/or coordinating discharge services: Greater than 30 minutes Status at Discharge Functional status at discharge: independent ambulation Overall status at discharge: patient is progressing back to baseline Mental Status: mental status grossly normal Speech and Movement: speech and movement normal and speech clear Mood: congruent mood Affect: normal affect Exam Psych Mental Status: mental status grossly normal Speech and Movement: speech and movement normal and speech clear Mood: congruent mood Affect: normal affect DS: Data Vitals/I&O Vitals and I&O: Vital Signs Temperature 98.1 F 02/01/25 08:35 Temperature 98.2 F 01/30/25 10:30 Temperature Source Oral 02/01/25 08:30 Pulse 82 02/01/25 08:30 Pulse 90 01/30/25 10:30 Pulse Rhythm Regular 01/31/25 19:35 Respiratory Rate 17 01/31/25 20:09 Respiratory Depth Normal 01/31/25 19:35 Blood Pressure 109/79 02/01/25 08:30 Blood Pressure 125/75 01/30/25 10:30 Blood Pressure Mean 89 02/01/25 08:30 Pulse Oximetry 99 01/31/25 20:09 Oxygen Delivery Method Room Air 01/30/25 10:10 Oxygen Flow Rate 0 01/30/25 10:10 Pain Level 3 02/01/25 08:35 Intake & Output 01/31/25 01/31/25 02/01/25 11:59 23:59 11:59 Output Total 3800 / 3800 Balance -3800 / -3800 Output: Urine 3100 / 3100 Blood 700 / 700 Other: Urine Color Pale Pale [place] Urine Appearance Clear Urine Odor None Data Completed and Pending Pending Labs at Discharge: 01/30/25 10:07 WBC 11.84 H RBC 4.02 Hgb 12.0 Hct 35.5 L MCV 88 MCH 29.9 MCHC 33.8 RDW 12.2 Plt Count 205 MPV 10.4 Immature Gran % 0.6 Neutrophils % 87.8 Lymphocytes % 7.8 Monocytes % 3.5 Eosinophils % 0.0 Basophils % 0.3 Nucleated RBC % 0.0 Absolute Neutrophils 10.40 H Absolute Lymphocytes 0.92 L Absolute Monocytes 0.41 Absolute Eosinophils 0.00 Absolute Basophils 0.04 ABO/Rh O Positive Antibody Screen NEGATIVE PFSH All Active Problems (Updated 02/01/25 @ 09:01 by Alyse Mahajan) Term delivered (Acute) Low back pain (Acute) After a fall in 2020. PT in the past. Susceptible to varicella (non-immune), currently (Acute) Medical History (Updated 02/01/25 @ 09:01 by Alyse Mahajan) Spontaneous onset of labor Slow progress in first stage of labor Asthma Family History (Updated 07/18/24 @ 13:42 by Emmy Huitron CNM) Father Hypertension Maternal Grandmother Breast cancer Paternal Aunt Cancer uterine cancer Maternal Uncle Congenital eye anomalies Stargardt syndrome Maternal Cousin Congenital eye anomalies Stargardt syndrome. autosomal recessive. Her son also has it. Social History (Updated 05/23/24 @ 12:14 by Barb Kamara CNM) Smoking/Tobacco Use Status: Never Second Hand Exposure: No Smoking risk assessment performed?: Yes Alcohol Intake: current Drug use: Never Substance use type: does not use Household members: spouse Housing: house current occupation: teacher Pets and animals: Yes (2 dogs, 1 cat and farm animals) Pets and animals: cat(s) Sexually active: Yes Do you think of yourself as: straight/heterosexual Current gender identity: female What is your relationship status?: Panel score (0-1 are the most socially isolated patients): 1 What type of physical activity do you participate in: regular exercise, weight lifting, running and yoga Duration: 45-60 minutes/day Frequency: 3-4 times per week Special miles needs: No Agree to transfusion: Yes Seatbelt use: always Helmet use: Yes Do you feel safe at home: Yes Female Reproductive History Menstrual Age of Menarche: 16 Duration of menses: 3-5 days control method: none History History 1 Para 0 Hx # Term Pregnancies 0 Multiple births 0 Hx # Pregnancies 0 Ectopic pregnancies 0 AB induced 0 Hx Number of Living Children 0 AB spontaneous 0
--- NOTE | 2025-02-01 09:18 | W.PM.OBDISCH ---
Date of service: 02/01/25 Time of Service: 09:18 DS: Diagnosis Discharge Diagnosis (1) Term delivered: Status: Acute Discharge Plan Disposition Patient Disposition: Home Condition: Good Discharge Details Reason For Visit: Labor Admit Date/Time: 01/30/25 09:58 Admit Provider: Emmy Huitron Attending Provider: Emmy Huitron Primary Care Provider: Unknown,Unknown Hospital Course Hospital Course: Admitted for labor, under epidural anesthesia on HD2, nml recovery and desires discharge at 24 hr . Home Meds and New Rx's Prescriptions: No Action Classic 28 mg iron- 800 mcg tablet PO DAILY (DME) breast pump Device See Rx Instructions .ROUTE .MEDSUPPLY Qty: 1 0RF Rx Instructions: As directed vitamin D3-vitamin K2 125-90 mcg capsule 1 cap PO DAILY Discharge Instructions Instructions: Sex After Having a Baby, Normal Bleeding After Having a Baby Additional Instructions: Please keep 2 and 6 wk appointments with chairman emeritus, call for any and all concerns. Stand Alone Forms: BC Instructions, BC Post Vaginal Deliver, Portal Information Activity:: Activity as Tolerated Equipment/Supplies:: No Equipment Needed Diet:: As Tolerated OB:DS Summary Summary Vaginal Delivery Method: Spontaneaous Episiotomy Description: None Laceration Description: None Laceration Extension: N/A Contraception Discussed Contraception Discussed: Yes Contraceptive Plan: Not planning to use (fertility tracking), [place] Gender-Baby A: Female weight: 8 lb 1.632 oz Status at Discharge Functional status at discharge: independent ambulation Overall status at discharge: patient is progressing back to baseline Mental Status: mental status grossly normal Speech and Movement: speech and movement normal and speech clear Mood: congruent mood Affect: normal affect Exam Physical Exam Vital signs: Temp Pulse Resp BP Pulse Ox 98.1 F 82 17 109/79 99 02/01/25 08:35 02/01/25 08:30 01/31/25 20:09 02/01/25 08:30 01/31/25 20:09 Constitutional Constitutional: no acute distress, average body habitus and cooperative HEENT Exam HEENT Exam: Normal Neck Exam Neck Exam: Normal Breast Exam Bilateral: Breast Exam: Normal and Soft Respiratory Exam Respiratory Exam: Normal Cardiovascular Exam Cardiovascular Exam: Normal Abdominal Exam Abdomen: Other (soft and nontender) Fundal Exam Fundus: Below Umbilicus and Firm Rectal Exam Rectal Exam: Normal Exam Perineum: Intact and Normal Extremities Exam Extremity Exam: Normal, Full ROM and Warm to Touch Back/Spine/Pelvis Exam Back Exam: Normal Skin Exam Skin Exam: Normal Neurological Exam Neurological Exam: Normal Psychiatric Exam Psychiatric Exam: Normal PFSH All Active Problems (Updated 02/01/25 @ 09:01 by Alyse Mahajan) Term delivered (Acute) Low back pain (Acute) After a fall in 2020. PT in the past. Susceptible to varicella (non-immune), currently (Acute) Medical History (Updated 02/01/25 @ 09:01 by Alyse Mahajan) Spontaneous onset of labor Slow progress in first stage of labor Asthma Family History (Updated 07/18/24 @ 13:42 by Emmy Huitron CNM) Father Hypertension Maternal Grandmother Breast cancer Paternal Aunt Cancer uterine cancer Maternal Uncle Congenital eye anomalies Stargardt syndrome Maternal Cousin Congenital eye anomalies Stargardt syndrome. autosomal recessive. Her son also has it. Social History (Updated 05/23/24 @ 12:14 by Barb Kamara CNM) Smoking/Tobacco Use Status: Never Second Hand Exposure: No Smoking risk assessment performed?: Yes Alcohol Intake: current Drug use: Never Substance use type: does not use Household members: spouse Housing: house current occupation: teacher Pets and animals: Yes (2 dogs, 1 cat and farm animals) Pets and animals: cat(s) Sexually active: Yes Do you think of yourself as: straight/heterosexual Current gender identity: female What is your relationship status?: Panel score (0-1 are the most socially isolated patients): 1 What type of physical activity do you participate in: regular exercise, weight lifting, running and yoga Duration: 45-60 minutes/day Frequency: 3-4 times per week Special miles needs: No Agree to transfusion: Yes Seatbelt use: always Helmet use: Yes Do you feel safe at home: Yes Female Reproductive History Menstrual Age of Menarche: 16 Duration of menses: 3-5 days control method: none History History 1 Para 0 Hx # Term Pregnancies 0 Multiple births 0 Hx # Pregnancies 0 Ectopic pregnancies 0 AB induced 0 Hx Number of Living Children 0 AB spontaneous 0 DS: Data Vitals/I&O Vitals and I&O: Vital Signs Temperature 98.1 F 02/01/25 08:35 Temperature 98.2 F 01/30/25 10:30 Temperature Source Oral 02/01/25 08:30 Pulse 82 02/01/25 08:30 Pulse 90 01/30/25 10:30 Pulse Rhythm Regular 01/31/25 19:35 Respiratory Rate 17 01/31/25 20:09 Respiratory Depth Normal 01/31/25 19:35 Blood Pressure 109/79 02/01/25 08:30 Blood Pressure 125/75 01/30/25 10:30 Blood Pressure Mean 89 02/01/25 08:30 Pulse Oximetry 99 01/31/25 20:09 Oxygen Delivery Method Room Air 01/30/25 10:10 Oxygen Flow Rate 0 01/30/25 10:10 Pain Level 3 02/01/25 08:35 Intake & Output 01/31/25 01/31/25 02/01/25 11:59 23:59 11:59 Output Total 3800 / 3800 Balance -3800 / -3800 Output: Urine 3100 / 3100 Blood 700 / 700 Other: Urine Color Pale Pale [place] Urine Appearance Clear Urine Odor None Data Completed and Pending Pending Labs at Discharge: 01/30/25 10:07 WBC 11.84 H RBC 4.02 Hgb 12.0 Hct 35.5 L MCV 88 MCH 29.9 MCHC 33.8 RDW 12.2 Plt Count 205 MPV 10.4 Immature Gran % 0.6 Neutrophils % 87.8 Lymphocytes % 7.8 Monocytes % 3.5 Eosinophils % 0.0 Basophils % 0.3 Nucleated RBC % 0.0 Absolute Neutrophils 10.40 H Absolute Lymphocytes 0.92 L Absolute Monocytes 0.41 Absolute Eosinophils 0.00 Absolute Basophils 0.04 ABO/Rh O Positive Antibody Screen NEGATIVE
[2025-02-01] MEDS: Varicella Virus Vaccine (Live) 0.5 ML SC (12:02)
== END 2025-02-01 12:05 | disposition home or self-care (01) | DRG 807 ==
LOC: BCD 13:47 → OBS 13:47
PROVIDERS: Admitting Provider Advanced Practice Midwife; Visit Provider Advanced Practice Midwife
DX: O48.0 Post-term pregnancy (principal); Z37.0 Single live birth; Z3A.40 40 weeks gestation of pregnancy; K21.9 Gastro-esophageal reflux disease without esophagitis; Z28.39 Other underimmunization status; G89.29 Other chronic pain; M54.50 Low back pain, unspecified; Z83.518 Family history of other specified eye disorder; O99.62 Diseases of the digestive system complicating childbirth; O70.0 First degree perineal laceration during delivery; O76 Abnormality in fetal heart rate and rhythm complicating labor and delivery; O63.0 Prolonged first stage (of labor)
CPT/HCPCS: 36415; 86850; 86900; 86901; 90716; 59025; 85025